=== PATIENT | female | born 1955 | race Two or more races ===

== ENCOUNTER 2023-10-19 12:43 | Inpatient (IN) | payer OTHER, MEDICAID ==
[~2023-10-19] VITALS: Ht 157.5 cm; Wt 57.2 kg
[2023-10-19] MEDS: IOHEXOL 350 MG/ML 100ML IJ ONE (13:11)
[2023-10-19 13:29] VITALS: PULSE 94; RESP 13; O2SAT 95
[2023-10-19] MEDS: ASPirin-EC 325mg tab PO ONE (13:51)
[2023-10-19] MEDS: LABETALOL HCL 5 MG/ML 4ML SYRINGE IV ONE (13:51)
[2023-10-19 14:02] LABS: Basophils # (auto) 0.1 10 ^3/uL (0-0.2); Basophils % (auto) 0.7 % (0.0-2.0); Eosinophils # (auto) 0.1 10 ^3/uL (0-0.8); Eosinophils % (auto) 1.7 % (0.0-7.0); Hematocrit 37.4 % (36.0-46.0); Hemoglobin 12.5 g/dL (12.2-16.2); Lymphocytes # (auto) 1.7 10 ^3/uL (0.4-5.4); Lymphocytes % (auto) 21.8 % (10.0-50.0); Mean Corpuscular Hemoglobin 28.7 pg (28.0-32.0); Mean Corpuscular Hgb Conc. 33.4 g/dL (32.0-36.0); Mean Corpuscular Volume 86.1 fL (80.0-100.0); Monocytes # (auto) 0.5 10 ^3/uL (0-1.3); Monocytes % (auto) 6.9 % (0.0-12.0); Neutrophils # (auto) 5.5 10 ^3/uL (1.6-8.6); Neutrophils % (auto) 68.9 % (37.0-80.0); Red Blood Cells 4.35 10^6/uL (4.0-5.20); White Blood Cell 7.9 10^3/uL (4.4-10.8)
[2023-10-19 14:18] LABS: INR 1.05 (0.9-1.15); Partial Thromboplastin Time 29.4 SEC (24.5-34.5)
[2023-10-19 14:26] LABS: Alanine Aminotransferase 18 U/L (7-40); Albumin 3.7 g/dL (3.2-4.8); Alkaline Phosphatase 71 U/L (46-116); Anion Gap 6 (5-15); Aspartate Aminotransferase 15 U/L (13-40); BUN/Creatinine Ratio 14.3 (10.0-20.0); Bilirubin, Total 0.3 mg/dL (0.2-1.0); Blood Urea Nitrogen 13 mg/dL (9-23); Calcium 8.6 mg/dL (8.7-10.4); Carbon Dioxide 26 mmol/L (20-30); Chloride 105 mmol/L (98-107); Glucose 100 mg/dL (74-106); Magnesium 1.9 mg/dL (1.6-2.6); Potassium 3.8 mmol/L (3.5-5.1); Sodium 137 mmol/L (136-145); Total Protein 5.5 g/dL (5.7-8.2)
[2023-10-19] MEDS ORDERED: ONDANSETRON HCL 4 MG/2 ML VIAL IV PRN (15:15)
[2023-10-19] MEDS ORDERED: HYDROmorphone HCL 2 MG/ML VL/or syr IV PRN (15:15)
[2023-10-19] MEDS: CLOPIDOGREL BISULFATE 75 MG TAB PO SCH (15:48)
[2023-10-19] MEDS ORDERED: hydrALAZINE HCL 10 MG TAB PO PRN (17:45)
[2023-10-19] MEDS ORDERED: LEVO25TA6 PO (19:10)
[2023-10-19] MEDS ORDERED: LOSA50TA46 PO (19:10)
[2023-10-19] MEDS ORDERED: ASPI325T4 PO (19:10)
[2023-10-19 20:00] VITALS: PULSE 73; PULSE 77
[2023-10-19 21:00] VITALS: BP 109/69; PULSE 74; RESP 20; TEMP 98.4; O2SAT 95
[2023-10-19] MEDS: SODIUM CHLOR 0.9% PF (SALINE LOCK) 10ML VIAL/SYR IV SCH (22:56)
[2023-10-19] MEDS: ACETAMINOPHEN 325 MG TAB PO PRN (22:58)
[2023-10-20] VITALS (7 sets, daily range): BP systolic 130–146; BP diastolic 67–89; PULSE 53–85; RESP 18–20; TEMP 98–98.4; O2SAT 94–97
[2023-10-20] MEDS: ASPirin-EC 81 mg tab PO SCH (10:22)
[2023-10-20 16:48] LABS: Erythrocyte Sedimentation Rate 6 mm/hr (0-20)
[2023-10-20 21:35] LABS: Urine Bacteria FEW /hpf (None Seen); Urine Blood Negative /uL (Negative); Urine Clarity Clear (Clear); Urine Protein, UAD Negative (Negative); Urine Specific Gravity 1.004 (1.001-1.035); Urine Urobilinogen Normal (Negative); Urine WBC <1 /hpf (0 - 5); Urine pH 6.5 (5.0-8.0)
[2023-10-20 21:36] LABS: Urine Color STRAW (Yellow)
[2023-10-21 05:00] VITALS: BP 138/68; PULSE 79; RESP 17; TEMP 97.9; O2SAT 97
[2023-10-21 08:00] VITALS: PULSE 74; PULSE 88; RESP 16; O2SAT 96
[2023-10-21 09:00] VITALS: BP 159/90; PULSE 74; RESP 16; TEMP 98; O2SAT 100
[2023-10-21 13:00] VITALS: BP 143/69; PULSE 80; RESP 17; TEMP 98.1; O2SAT 97
[2023-10-21 15:27] LABS: Triglycerides 127 mg/dL (< 150)
[2023-10-21 15:28] LABS: LDL Cholesterol 128 mg/dL (< 100)
[2023-10-21 15:29] LABS: Cholesterol 199 mg/dL (< 200); HDL Cholesterol 57 mg/dL (40-59)
[2023-10-21 17:00] VITALS: BP 131/70; PULSE 76; RESP 17; TEMP 97.9; O2SAT 98
[2023-10-21 19:36] VITALS: PULSE 74
[2023-10-22 05:00] VITALS: BP 138/83; PULSE 78; RESP 18; TEMP 98.3; O2SAT 98
[2023-10-22 07:30] VITALS: PULSE 77
[2023-10-22 08:06] LABS: Anti-Nuclear Antibody Direct Negative (Negative)
[2023-10-22 09:00] VITALS: BP 162/80; PULSE 69; RESP 16; TEMP 97.4; O2SAT 95
[2023-10-22] MEDS ORDERED: ATO40T PO (11:27)
[2023-10-22 13:00] VITALS: BP 116/59; PULSE 91; RESP 17; TEMP 98.4; O2SAT 93
[2023-10-22 14:47] VITALS: BP 116/59; PULSE 91; RESP 17; TEMP 98.4; O2SAT 93
== END 2023-10-22 16:40 | disposition home or self-care (01) | DRG 304 ==
LOC: ER 12:43 → TELE 15:18 → TELE-EAST 17:59
PROVIDERS: ADMIT Internal Medicine; ATTEND Family Medicine
DX: I16.0 Hypertensive urgency (principal); I63.9 Cerebral infarction, unspecified; G81.94 Hemiplegia, unspecified affecting left nondominant side; E03.9 Hypothyroidism, unspecified; I25.2 Old myocardial infarction; Z79.02 Long term (current) use of antithrombotics/antiplatelets; Z79.82 Long term (current) use of aspirin
CPT/HCPCS: 36415; 70450; 70496; 70551; 71045; 80053; 80061; 81001; 83735; 83880; 84443; 84484; 85025; 85610; 85652; 85730; 86038; 93306; 96374; 97110; 97116; 97163; 97530; G0378; J3490